=== PATIENT | male | born 1955 | race Two or more races ===

== ENCOUNTER → 2025-04-21 13:15 | Outpatient (REF) | payer MEDICARE, SELFPAY | LOC: RCS 13:15 | PROVIDERS: ATTENDING PHYSICIAN Internal Medicine Geriatric Medicine | DX: G47.33 Obstructive sleep apnea (adult) (pediatric) (principal); E66.01 Morbid (severe) obesity due to excess calories; Z23 Encounter for immunization; I48.0 Paroxysmal atrial fibrillation; M79.671 Pain in right foot | CPT/HCPCS: 73630; 93225; 93226 ==